=== PATIENT | male | born 1960 ===

== ENCOUNTER → 2021-11-27 | Outpatient (CLI) | payer OTHER | LOC: CARD 09:00 | PROVIDERS: ATTEND Internal Medicine Cardiovascular Disease | DX: I25.10 Atherosclerotic heart disease of native coronary artery without angina pectoris (principal); I10 Essential (primary) hypertension | CPT/HCPCS: 93306 ==

== ENCOUNTER → 2021-12-11 | Outpatient (CLI) | payer OTHER ==
--- NOTE | 2021-12-11 12:26 | Diagnostic Imaging Report ---
PROCEDURE: US Thyroid. TECHNIQUE: Multiple Real-time grayscale images were obtained of the thyroid in various projections. INDICATION: Swollen neck. COMPARISON: None. FINDINGS: The right thyroid lobe measures 5.3 x 2.0 x 1.7 cm in size. Background echotexture appears homogenous and vascularity is normal. Multiple nodules are present in the inferior thyroid, listed lateral to medial: 1. 8 mm hypoechoic nodule with well-defined borders and no calcifications. 2. Hypoechoic 8 mm nodule appears taller than wide. 3. Hypoechoic 12 mm circumscribed nodule also appears taller than wide. The isthmus measures 3 mm in thickness and appears normal. The left thyroid lobe measures 5.0 x 1.6 x 2.1 cm in size. Background echotexture is normal. Vascularity is normal. Two nodules are seen: 1. In the mid thyroid, there is a defined hypoechoic solid nodule measuring 9 mm. 2. In the inferior left thyroid, there is a hypoechoic defined solid nodule measuring up to 10 mm. IMPRESSION: Multiple solid hypoechoic nodules in the thyroid bilaterally. The largest measures 12 mm in the medial inferior right thyroid and does appear to be taller than wide. FNA could be considered; otherwise, followup in 1 year is recommended. Dictated by: Dictated on workstation # [id number]
== END ==
LOC: RAD 11:15
PROVIDERS: ATTEND Nurse Practitioner Family
DX: E04.2 Nontoxic multinodular goiter (principal)
CPT/HCPCS: 76536

== ENCOUNTER → 2022-12-04 | Outpatient (CLI) | payer OTHER | LOC: CARD 11:00 | PROVIDERS: ATTEND Internal Medicine Cardiovascular Disease | DX: I10 Essential (primary) hypertension (principal); I25.10 Atherosclerotic heart disease of native coronary artery without angina pectoris | CPT/HCPCS: 93306 ==

== ENCOUNTER → 2023-07-21 | Outpatient (CLI) | payer OTHER ==
--- NOTE | 2023-07-21 13:09 | Diagnostic Imaging Report ---
CLINICAL INDICATION: Patient with cervical spine pain. Patient has history of previous C-spine surgery. TECHNIQUE: MRI of the cervical spine performed without IV contrast. Sequences include sagittal T2, sagittal T1, sagittal T2, and axial T2. COMPARISON: None. FINDINGS: There are postoperative changes to the cervical spine with C5-C6 anterior cervical discectomy and fusion. There is solid bony bridging/fusion seen at the C5-C6 level. Limited visualization of the posterior fossa is unremarkable. There is localized deformity of the cervical spinal cord at the C4-C5 level due to disk disease. Otherwise, the cervical spinal cord has normal cord caliber with no abnormal signal. There is no significant paraspinal soft tissue abnormality. C1-C2: There are degenerative spurs involving the atlanto-odontoid interval anteriorly. There is no significant central canal stenosis. C2-C3: There is mild bilateral facet arthropathy. There is no significant central canal or neural foramen narrowing. C3-C4: There is a diffuse disk bulge and mild bilateral facet arthropathy. There is mild left neural foramen narrowing. There is no significant right neural foramen narrowing. There is mild central canal stenosis. C4-C5: There is a diffuse disk bulge with annular tear involving the anterior aspect of the disc. There is mild bilateral facet arthropathy. There is no significant left neural foramen narrowing. There is moderate right neural foramen narrowing. There is [id number] central canal stenosis. C5-C6: There is no significant central canal or neural foramen narrowing. C6-C7: There is diffuse disk bulge, moderate bilateral facet arthropathy with hypertrophic changes on the left, bilateral uncinate spurs, and ligamentum flavum buckling. There is severe central canal stenosis. There is severe bilateral neural foramen narrowing. C7-T1: There is no significant central canal or neural foramen narrowing. IMPRESSION: 1: There is C5-C6 anterior cervical discectomy and fusion hardware with solid bony bridging/fusion. 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 Dictated by: Dictated on workstation # [id number]
== END ==
LOC: RAD 08:32
PROVIDERS: ATTEND Family Medicine
DX: Z01.89 Encounter for other specified special examinations (principal); M50.321 Other cervical disc degeneration at C4-C5 level; M50.323 Other cervical disc degeneration at C6-C7 level; Z78.1 Physical restraint status
CPT/HCPCS: 72141